=== PATIENT | male | born 1945 | race Caucasian/White ===

== ENCOUNTER 2018-09-30 10:31 | Outpatient (REF) | payer MEDICARE, BC, SELFPAY ==
[2018-09-30 21:25] LABS: Abs Immature Grans 0.03 k/cumm (0.0-0.09); Absolute Basophil Count 0.02 k/cumm (0.0-0.2); Absolute Eosinophil Count 0.07 k/cumm (0.0-0.7); Absolute Monocyte Count 0.33 k/cumm (0.11-0.7); Basophils % 0.5; Eosinophils % 1.8; HCT 44.8 % (40.0-50.0); HGB 15.4 g/dL (13.5-17.5); Immature Grans % 0.8; Lymphocytes % 27.8; Mean Corp. HGB Concentration 34.4 g/dL (32.0-36.0); Mean Corpuscular Hemoglobin 31.4 pg (27.0-33.0); Mean Corpuscular Volume 91.4 fL (80-95); Mean Platelet Volume 11.4 fL (8.0-11.0); Monocytes % 8.4; Neutrophils % 60.7; Platelet Count 115 x1000/uL (130-400); White Blood Cell Count 3.95 k/cumm (4.4-10.8)
[2018-09-30 21:30] LABS: Calculated LDL 184 mg/dL; Cholesterol 255 mg/dL (50-200); HDL Cholesterol 39 mg/dL (40-60); TSH 1.53 uIU/mL (0.358-3.74); Triglyceride 161 mg/dL (30-150)
== END 2018-09-30 10:51 ==
LOC: NCHCN 10:31
PROVIDERS: PCP Internal Medicine; Visit Provider Internal Medicine
DX: E78.5 Hyperlipidemia, unspecified (principal); R53.83 Other fatigue; E55.9 Vitamin D deficiency, unspecified
CPT/HCPCS: 80061; 82306; 83721; 84443; 85025

== ENCOUNTER 2018-10-21 09:50 | Outpatient (REF) | payer MEDICARE, BC, SELFPAY ==
[2018-10-21 21:41] LABS: HCT 44.6 % (40.0-50.0); HGB 15.2 g/dL (13.5-17.5); Mean Corp. HGB Concentration 34.1 g/dL (32.0-36.0); Mean Corpuscular Hemoglobin 31.5 pg (27.0-33.0); Mean Corpuscular Volume 92.3 fL (80-95); Mean Platelet Volume 10.3 fL (8.0-11.0); Platelet Count 190 x1000/uL (130-400); RBC 4.83 m/cumm (4.50-6.00); White Blood Cell Count 5.75 k/cumm (4.4-10.8)
[2018-10-21 22:23] LABS: ALT 22 U/L (12-78); AST 21 U/L (15-37); Albumin 3.8 g/dL (3.4-5.0); Alkaline Phosphatase 75 U/L (46-116); Bilirubin, Total 0.7 mg/dL (0.2-1.0); Total Protein 6.8 g/dL (6.4-8.2); Vitamin B12 434 pg/mL (193-986)
[2018-10-21 22:31] LABS: Bilirubin, Direct 0.12 mg/dL (0.00-0.20)
== END 2018-10-21 10:10 ==
LOC: NCHCN 09:50
PROVIDERS: PCP Internal Medicine; Visit Provider Internal Medicine
DX: D72.818 Other decreased white blood cell count (principal); R79.1 Abnormal coagulation profile; R14.0 Abdominal distension (gaseous); R53.83 Other fatigue
CPT/HCPCS: 80076; 85027; 82607

== ENCOUNTER 2020-05-10 15:56 | Outpatient (REF) | payer MEDICARE, BC, SELFPAY ==
[2020-05-12 14:03] LABS: COVID-19 RT-PCR UVMMC Result Negative (Negative)
== END 2020-05-10 15:57 | disposition home or self-care (01) ==
LOC: NCHCN 15:56
PROVIDERS: PCP Internal Medicine; Visit Provider Internal Medicine
DX: Z20.822 Contact with and (suspected) exposure to COVID-19 (principal)
CPT/HCPCS: U0003; U0005

== ENCOUNTER 2020-05-12 12:06 | Outpatient (REF) | payer MEDICARE, BC, SELFPAY ==
[2020-05-12 14:26] LABS: Calculated LDL 178 mg/dL (<100); Cholesterol 252 mg/dL (<200); HDL Cholesterol 44 mg/dL (40-60); Triglyceride 154 mg/dL (<150)
== END 2020-05-12 12:07 | disposition home or self-care (01) ==
LOC: NCHCN 12:06
PROVIDERS: PCP Internal Medicine; Visit Provider Internal Medicine
DX: E78.5 Hyperlipidemia, unspecified (principal)
CPT/HCPCS: 80061

== ENCOUNTER 2021-04-19 19:46 | Outpatient (REF) | payer MEDICARE, BC, SELFPAY ==
[2021-04-19 22:19] LABS: HCT 42.8 % (40.0-50.0); HGB 14.4 g/dL (13.5-17.5); MCH 30.9 pg (27.0-33.0); MCHC 33.6 % (32.0-36.0); MCV 91.8 fL (80-95); MPV 10.3 fL (8.0-11.0); Platelet Count 199 10^3/uL (130-400); RBC 4.66 10^6/uL (4.36-5.78); RDW 12.7 % (11.8-14.1); RDW-SD 42.6 fL; WBC 5.62 10^3/uL (4.4-10.8)
[2021-04-19 22:32] LABS: ALT 27 U/L (16-63); Albumin 3.9 g/dL (3.4-5.0); Alkaline Phosphatase 75 U/L (46-116); Anion Gap 7.2 mmol/L (3-11); BUN 21 mg/dL (7-18); Bilirubin, Total 0.5 mg/dL (0.2-1.0); CO2 27.8 mmol/L (21.0-32.0); CREATININE 0.9 mg/dL (0.70-1.30); Calcium 8.9 mg/dL (8.5-10.1); Calculated LDL 126 mg/dL (<100); Chloride 105 mmol/L (98-107); Cholesterol 234 mg/dL (<200); Glucose 95 mg/dL (74-106); HDL Cholesterol 39 mg/dL (40-60); Potassium 4.5 mmol/L (3.5-5.1); Sodium 140 mmol/L (136-145); Total Protein 6.9 g/dL (6.4-8.2); Triglyceride 346 mg/dL (<150)
[2021-04-19 23:05] LABS: AST 22 U/L (15-37)
[2021-04-20 17:23] LABS: PSA, Screening 0.9 ng/mL (0.0-6.5)
[2021-04-21 10:05] LABS: Hepatitis C Ab w Rflx HCV PCR Negative (Negative)
[2021-04-21 10:22] LABS: HIV-1/2 Ag & Ab Screen Negative (Negative)
== END 2021-04-19 19:47 | disposition home or self-care (01) ==
LOC: NCHCN 19:46
PROVIDERS: PCP Internal Medicine; Visit Provider Nurse Practitioner Family
DX: Z11.4 Encounter for screening for human immunodeficiency virus [HIV] (principal); Z11.59 Encounter for screening for other viral diseases; Z12.5 Encounter for screening for malignant neoplasm of prostate; E78.5 Hyperlipidemia, unspecified
CPT/HCPCS: 80053; 80061; 84153; 85027; 86803; 87389

== ENCOUNTER 2022-01-27 13:13 | Outpatient (REF) | payer MEDICARE, BC, SELFPAY ==
[2022-01-27 15:42] LABS: Abs Immature Grans 0.02 10^3/uL (0.0-0.06); Absolute Basophil Count 0.02 10^3/uL (0.0-0.2); Absolute Lymphocyte Count 1.12 10^3/uL (1.2-3.4); Absolute Monocyte Count 0.39 10^3/uL (0.1-0.8); Basophils % 0.4; Eosinophils % 1.9; HCT 43.6 % (40.0-50.0); HGB 14.7 g/dL (13.5-17.5); Immature Grans % 0.4; Lymphocytes % 20.9; MCH 31.1 pg (27.0-33.0); MCHC 33.7 % (32.0-36.0); MCV 92 fL (80-95); MPV 10.2 fL (8.0-11.0); Monocytes % 7.3; Neutrophils % 69.1; Platelet Count 223 10^3/uL (130-400); RBC 4.72 10^6/uL (4.36-5.78); RDW 12.2 % (11.8-14.1); WBC 5.35 10^3/uL (4.4-10.8)
[2022-01-27 16:44] LABS: Anion Gap 7.3 mmol/L (3-11); BUN 17 mg/dL (7-18); CO2 29.7 mmol/L (21.0-32.0); CREATININE 0.9 mg/dL (0.70-1.30); Calcium 9.4 mg/dL (8.5-10.1); Calculated LDL 190 mg/dL (<100); Chloride 102 mmol/L (98-107); Cholesterol 255 mg/dL (<200); Estimated GFR 89.07 (mL/min/1.73m2); Glucose 85 mg/dL (74-106); HDL Cholesterol 45 mg/dL (40-60); Potassium 4.6 mmol/L (3.5-5.1); Sodium 139 mmol/L (136-145); TSH 0.54 uIU/mL (0.36-3.74); Triglyceride 101 mg/dL (<150)
[2022-01-27 22:16] LABS: PSA, Screening 1.2 ng/mL (<=6.5)
== END 2022-01-27 13:14 | disposition home or self-care (01) ==
LOC: NCHCN 13:13
PROVIDERS: PCP Internal Medicine; Visit Provider Family Medicine
DX: E78.5 Hyperlipidemia, unspecified (principal); R53.83 Other fatigue; Z12.5 Encounter for screening for malignant neoplasm of prostate; Z80.42 Family history of malignant neoplasm of prostate; G47.00 Insomnia, unspecified
CPT/HCPCS: 80048; 80061; 84153; 84443; 85025

== ENCOUNTER 2022-06-15 21:12 | Outpatient (REF) | payer MEDICARE, SELFPAY ==
[2022-06-15 21:28] LABS: Absolute Basophil Count 0.04 10^3/uL (0.0-0.2); Absolute Eosinophil Count 0.08 10^3/uL (0.0-0.7); Absolute Lymphocyte Count 1.25 10^3/uL (1.2-3.4); Absolute Monocyte Count 0.36 10^3/uL (0.1-0.8); Absolute Neutrophil Count 2.89 10^3/uL (1.2-6.7); Basophils % 0.9; Eosinophils % 1.7; HGB 14.2 g/dL (13.5-17.5); Lymphocytes % 27.1; MCH 31.2 pg (27.0-33.0); MCHC 33.8 % (32.0-36.0); MCV 92 fL (80-95); MPV 10.5 fL (8.0-11.0); Monocytes % 7.8; Neutrophils % 62.5; Platelet Count 200 10^3/uL (130-400); RBC 4.55 10^6/uL (4.36-5.78); RDW 12.5 % (11.8-14.1); RDW-SD 42.7 fL; WBC 4.62 10^3/uL (4.4-10.8)
[2022-06-15 22:49] LABS: ALT 22 U/L (16-63); AST 20 U/L (15-37); Albumin 3.9 g/dL (3.4-5.0); Alkaline Phosphatase 78 U/L (46-116); Anion Gap 5.8 mmol/L (3-11); BUN 14 mg/dL (7-18); Bilirubin, Total 0.5 mg/dL (0.2-1.0); CO2 29.2 mmol/L (21.0-32.0); Calcium 9.1 mg/dL (8.5-10.1); Chloride 105 mmol/L (98-107); Glucose 98 mg/dL (74-106); Potassium 4.6 mmol/L (3.5-5.1); Sodium 140 mmol/L (136-145); TSH (W/Ref FT4) 0.96 uIU/mL (0.36-3.74); Total Protein 7.1 g/dL (6.4-8.2); Vitamin B12 722 pg/mL (193-986)
[2022-06-15 22:51] LABS: Folate > 20.0 ng/mL (8.6-20.0)
== END 2022-06-15 21:13 | disposition home or self-care (01) ==
LOC: NCHCN 21:12
PROVIDERS: PCP Internal Medicine; Visit Provider Family Medicine
DX: R42 Dizziness and giddiness (principal); D72.818 Other decreased white blood cell count; R53.83 Other fatigue; E78.5 Hyperlipidemia, unspecified
CPT/HCPCS: 80053; 82607; 82746; 84443; 85025

== ENCOUNTER 2022-07-05 11:13 | Outpatient (REF) | payer MEDICARE, SELFPAY ==
[2022-07-05 15:23] LABS: Calculated LDL 168 mg/dL (<100); Cholesterol 227 mg/dL (<200); HDL Cholesterol 41 mg/dL (40-60); Triglyceride 93 mg/dL (<150)
== END 2022-07-05 11:14 | disposition home or self-care (01) ==
LOC: NCHCN 11:13
PROVIDERS: PCP Internal Medicine; Visit Provider Family Medicine
DX: E78.5 Hyperlipidemia, unspecified (principal); R53.83 Other fatigue
CPT/HCPCS: 80061

== ENCOUNTER 2024-02-22 09:29 | Outpatient (REF) | payer MEDICARE, SELFPAY ==
[2024-02-22 15:32] LABS: ALT 24 U/L (16-63); AST 17 U/L (15-37); Albumin 4.2 g/dL (3.4-5.0); Alkaline Phosphatase 83 U/L (46-116); Anion Gap 7.8 mmol/L (3-11); BUN 19 mg/dL (7-18); CO2 30.2 mmol/L (21.0-32.0); CREATININE 0.9 mg/dL (0.70-1.30); Calcium 9.7 mg/dL (8.5-10.1); Calculated LDL 173 mg/dL (<100); Chloride 104 mmol/L (98-107); Cholesterol 245 mg/dL (<200); Estimated GFR 87.96 (mL/min/1.73m2); Glucose 89 mg/dL (74-106); HDL Cholesterol 54 mg/dL (40-60); Potassium 4.2 mmol/L (3.5-5.1); Sodium 142 mmol/L (136-145); Total Protein 7.5 g/dL (6.4-8.2); Triglyceride 91 mg/dL (<150); Vitamin B12 768 pg/mL (193-986); Vitamin D 25 Total 43.2 ng/mL (30-100)
[2024-02-22 21:34] LABS: CRP, High Sensitivity 1.39 mg/L (See Note)
[2024-02-22 22:16] LABS: PSA, Diagnostic 1.5 ng/mL (<=6.5)
== END 2024-02-22 09:30 | disposition home or self-care (01) ==
LOC: NCHCN 09:29
PROVIDERS: PCP Internal Medicine; Visit Provider Family Medicine
DX: E78.5 Hyperlipidemia, unspecified (principal); R35.0 Frequency of micturition
CPT/HCPCS: 80053; 80061; 82306; 86141; 82607; 84153

== ENCOUNTER 2025-01-19 12:56 | Outpatient (REF) | payer MEDICARE, OTHER, SELFPAY ==
[2025-01-19 15:09] LABS: ALT 29 U/L (16-63); AST 21 U/L (15-37); Albumin 3.9 g/dL (3.4-5.0); Alkaline Phosphatase 75 U/L (46-116); Anion Gap 7.4 mmol/L (3-11); BUN 16 mg/dL (7-18); Bilirubin, Total 0.7 mg/dL (0.2-1.0); CO2 30.6 mmol/L (21.0-32.0); Calcium 9.3 mg/dL (8.5-10.1); Calculated LDL 72 mg/dL (<100); Chloride 103 mmol/L (98-107); Cholesterol 154 mg/dL (<200); Estimated GFR 77.04 (mL/min/1.73m2); Glucose 80 mg/dL (74-106); HDL Cholesterol 49 mg/dL (>or=40); Potassium 4.3 mmol/L (3.5-5.1); Sodium 141 mmol/L (136-145); Total Protein 7.5 g/dL (6.4-8.2); Triglyceride 167 mg/dL (<150)
== END 2025-01-19 12:57 | disposition home or self-care (01) ==
LOC: NCHCN 12:56
PROVIDERS: PCP Internal Medicine; Visit Provider Family Medicine
DX: Z00.00 Encounter for general adult medical examination without abnormal findings (principal)
CPT/HCPCS: 80053; 80061